=== PATIENT | male | born 1930 | race Caucasian/White ===

== ENCOUNTER 2016-08-25 17:15 | Inpatient (IN) | payer MEDICARE, MEDICAID ==
[~2016-08-25] VITALS: Ht 160 cm; Wt 57.6 kg
[~2016-08-25 17:15] MED LIST: CARV12.52 PO; CLON0.5T4 PO; DICL75TA5 PO; DOCU-170 PO; HYDR-548 PO; LINA145C PO; OLME40TA3 PO; PANT40SU PO; SODI650T PO; TRAM50TA2 PO
--- NOTE | 2016-08-25 17:22 | NUR ---
PT BIB RA FROM HOME FOR INCREASING CONFUSION OVER 2 WEEKS. DENIES ANY PAIN. PT HAS PORTACATH . PLACED ON MONITOR. VSS.
[2016-08-25] MEDS ORDERED: LEVO500T90 PO (17:59)
[2016-08-25] MEDS ORDERED: CLON0.1T PO (17:59)
[2016-08-25] MEDS ORDERED: FAMO20TA8 PO (17:59)
[2016-08-25] MEDS ORDERED: IV NS 0.9% 1,000 ML BAG IV ONE ×2 (18:00→20:00)
[2016-08-25] MEDS ORDERED: IV NS 0.9% 1,000 ML ONE ×2 (18:04→19:50)
[2016-08-25] MEDS ORDERED: IV SET PRIMARY 1 EA INFUS.SET MC ONE ×2 (18:04→19:50)
--- NOTE | 2016-08-25 18:06 | NUR ---
RT CHEST PORTACATH ACCESS. BLOOD SAMPLE COLLECTED
--- NOTE | 2016-08-25 18:13 | NUR ---
URINE SAMPLE COLLECTED FROM UROSTOMY BAG
[2016-08-25 18:20] LABS: BASOPHILS # (AUTO) 0.1 /CMM (0.0-0.2); BASOPHILS % (AUTO) 0.7 % (0.0-2.0); EOSINOPHILS % (AUTO) 0.2 % (0.0-6.0); HEMATOCRIT 27 % (39-51); HEMOGLOBIN 8.7 g/dL (13.5-17.5); LYMPHOCYTES # (AUTO) 1.6 /CMM (0.8-4.8); LYMPHOCYTES % (AUTO) 9.4 % (20.0-44.0); MEAN CORPUSCULAR HEMOGLOBIN 27 PG (26.0-33.0); MEAN CORPUSCULAR HGB CONC 32 g/dl (31.0-36.0); MEAN CORPUSCULAR VOLUME 84 fL (80-96); MONOCYTES # (AUTO) 0.5 /CMM (0.1-1.30); MONOCYTES % (AUTO) 2.7 % (2.0-12.0); NEUTROPHILS # (AUTO) 14.5 /CMM (1.8-8.9); PLATELET COUNT (AUTO) 278 /CMM (150-450); RDW COEFFICIENT OF VARIATION 17.4 (11.5-15.0); WHITE BLOOD COUNT (AUTO) 16.7 K/uL (4.3-11.0)
[2016-08-25 18:32] LABS: CALCIUM, SERUM 8.4 mg/dL (8.5-10.1); CREATININE 0.8 mg/dL (0.6-1.3); POTASSIUM 3.4 mmol/L (3.5-5.1)
[2016-08-25 18:38] LABS: ALBUMIN 1.8 g/dL (3.4-5.0); BILIRUBIN,DIRECT 0.1 mg/dL (0.0-0.2); BILIRUBIN,TOTAL 0.4 mg/dL (0.2-1.0); INR 1.12 (0.87-1.13); PROTHROMBIN TIME 12.1 SECS (9.5-12.7); TOTAL PROTEIN, SERUM 5.6 g/dL (6.4-8.2)
--- NOTE | 2016-08-25 19:21 | NUR ---
GAVE REPORT TO MATIAS ORTA
[2016-08-25 19:27] LABS: APPEARANCE,URINE CLEAR (CLEAR); BILIRUBIN,URINE NEGATIVE (NEGATIVE); BLOOD, URINE 1+ Ery/uL (NEGATIVE); COLOR,URINE YELLOW (YELLOW); KETONES,URINE NEGATIVE (NEGATIVE); LEUKOCYTE ESTERASE ,URINE 2+ (NEGATIVE); NITRITE, URINE NEGATIVE (NEGATIVE); PROTEIN,URINE TRACE mg/dl (NEGATIVE); UGLUCOSE NEGATIVE (NEGATIVE); UROBILINOGEN,URINE 0.2 EU/dL (0.2)
[2016-08-25 19:35] LABS: ADD URINE CULTURE YES; BACTERIA,URINE Few /HPF (None Seen); SQUAMOUS EPITHELIAL CELL,UR Rare /HPF (None Seen)
[2016-08-25] MEDS ORDERED: CEFTRIAXONE 1GM BAG (ER ONLY) 50 ML IV ONE (19:50)
[2016-08-25] MEDS ORDERED: IV SET PRIMARY PUMP SET 1 EA INFUS.SET MC ONE (19:50)
[2016-08-25] MEDS ORDERED: CEFTRIAXONE 1GM BAG (ER ONLY) 1 GM/50 ML PIGGYBACK IV ONE (20:00)
--- NOTE | 2016-08-25 20:12 | NUR ---
PT TO RADIOLOGY FOR HEAD CT SCAN VIA [facility].
--- NOTE | 2016-08-25 20:39 | NUR ---
BLOOD CULTURES AND LACTIC ACID DRAWN BY LAB.
--- NOTE | 2016-08-25 20:46 | NUR ---
REPORT GIVEN TO [place]. PT AWAITING TRANSFER TO FLOOR.
[2016-08-25 21:00] VITALS: BP 147/71
--- NOTE | 2016-08-25 21:00 | NUR ---
MS RN NOTE: RECEIVED PATIENT FROM ER, NO ACUTE DISTRESS NOTED, FAMILY AT BEDSIDE. BREATHING EVEN AND UNLABORED, NO SOB NOTED. PORT-A-CATH TO RIGHT CHEST WALL IN PLACE. ORIENTED FAMILY TO ROOM AND USE OF CALL LIGHT. BED LOCKED AND IN LOWEST POSITION, CALL LIGHT IN REACH. WILL CONTINUE TO MONITOR.
[2016-08-25] MEDS ORDERED: ZOLPIDEM TARTRATE 5 MG TABLET PO PRN (21:30)
[2016-08-25] MEDS ORDERED: ACETAMINOPHEN 325 MG TABLET PO PRN (21:30)
[2016-08-25] MEDS ORDERED: MAGNESIUM HYDROXIDE 30 ML UDC PO PRN (21:30)
[2016-08-25] MEDS ORDERED: POTASSIUM CHLORIDE 20 MEQ TAB.PRT.SR PO ONE ×2 (21:30→22:27)
[2016-08-25] MEDS ORDERED: ONDANSETRON HCL/PF 4 MG/2 ML VIAL IVP PRN (21:30)
[2016-08-25] MEDS ORDERED: ENOXAPARIN SODIUM 40 MG/0.4 ML DISP.SYRIN SQ SCH ×2 (21:30)
[2016-08-25] MEDS: IV NS 0.9% 1,000 ML IV PRN (22:39)
[2016-08-25] MEDS ORDERED: CLONIDINE HCL 0.1 MG TABLET PO PRN (23:00)
[2016-08-25] MEDS ORDERED: TRAMADOL HCL 50 MG TABLET PO PRN (23:00)
[2016-08-25] MEDS ORDERED: ZOLPIDEM TARTRATE 5 MG TABLET ONE (23:18)
--- NOTE | 2016-08-26 04:00 | NUR ---
MS RN NOTE: PATIENT CONFUSED AND TRYING TO GET OUT OF BED. TRIED TO REORIENT PATIENT, BUT CONTINUE TO TRY TO GET UP AND OUT OF BED. CONTACTED ON-CALL , ALEXANDER MONTES. RECEIVED ORDER FOR SITTER. OK TO HAVE A SITTER. INFORMED NURSING FUEL CELL REPAIRER, NO SITTER AVAILABLE FOR THE REST OF THE NIGHT, BUT WILL HAVE A SITTER FOR THE DAY SHIFT. NURSE NEAR BY PATIENT ROOM TO MONITOR PATIENT. WILL CONTINUE TO MONITOR.
--- NOTE | 2016-08-26 06:00 | NUR ---
MS RN NOTE: PATIENT RESTING IN BED, NO ACUTE DISTRESS NOTED. BREATHING EVEN AND UNLABORED, NO SOB NOTED. PORT-A-CATH TO RIGHT CHEST WALL IN PLACE. BED LOCKED AND IN LOWEST POSITION, CALL LIGHT IN REACH. WILL ENDORSE TO DAY NURSE TO CONTINUE WITH PLAN OF CARE.
[2016-08-26 06:57] LABS: EOSINOPHILS % (AUTO) 0.3 % (0.0-6.0); HEMATOCRIT 30 % (39-51); HEMOGLOBIN 9.6 g/dL (13.5-17.5); LYMPHOCYTES # (AUTO) 1.3 /CMM (0.8-4.8); LYMPHOCYTES % (AUTO) 7.4 % (20.0-44.0); MEAN CORPUSCULAR HEMOGLOBIN 28 PG (26.0-33.0); MEAN CORPUSCULAR HGB CONC 33 g/dl (31.0-36.0); MEAN CORPUSCULAR VOLUME 84 fL (80-96); MONOCYTES # (AUTO) 0.7 /CMM (0.1-1.30); NEUTROPHILS % (AUTO) 88.3 % (43.0-81.0); PLATELET COUNT (AUTO) 356 /CMM (150-450); RDW COEFFICIENT OF VARIATION 18.1 (11.5-15.0); RED BLOOD CELL COUNT(AUTO) 3.51 MIL/uL (4.5-6.0); WHITE BLOOD COUNT (AUTO) 18.1 K/uL (4.3-11.0)
[2016-08-26 07:30] LABS: CALCIUM, SERUM 8.2 mg/dL (8.5-10.1); CREATININE 0.9 mg/dL (0.6-1.3); MAGNESIUM 1.6 mg/dL (1.8-2.4); PHOSPHORUS 2.4 mg/dL (2.5-4.9); POTASSIUM 3.3 mmol/L (3.5-5.1)
[2016-08-26 08:00] VITALS: BP 146/76
[2016-08-26] MEDS ORDERED: CARVEDILOL 12.5 MG TABLET PO SCH (09:00)
[2016-08-26] MEDS: FAMOTIDINE (20 MG) 20 MG TABLET PO SCH (09:05)
[2016-08-26] MEDS: PANTOPRAZOLE 40 MG TABLET.DR PO SCH (09:05)
--- NOTE | 2016-08-26 09:29 | NUR ---
WOUND CARE CONSULT: PT PRESENTS WITH LEFT LEG EDEMA WHICH IS PROFOUND WITH 4+ PITTING EDEMA TO LEFT FOOT. BLANCHING REDNESS NOTED TO SACRAL/BUTTOCK AREAS. PT TO BE TURNED AND REPOSITIONED EVERY 2 HRS PT CONDITION PERMITS, HEELS FLOATED. PT NOTED TO BE INCONTINENT OF STOOL AT TIMES. ALL SKIN PROTECTION RECOMMENDATIONS DISCUSSED WITH NURSING STAFF. PT ON COMFORT GEL MATTRESS. IN AGREEMENT WITH PLAN OF CARE. Addendum: 08/26/16 at 0935 by KAY SKELTON WNDNU Amended: Links added.
--- NOTE | 2016-08-26 09:40 | NUR ---
RN NOTE: RECEIVED PATIENT RESTING IN BED, NO ACUTE DISTRESS NOTED, DENIES ANY PAIN OR DISCOMFORT. BREATHING EVEN AND UNLABORED, NO SOB NOTED. PORT-A-CATH TO RIGHT CHEST WALL IN PLACE. ORIENTED TO SELF, SITTER AT BEDSIDE. BED LOCKED AND IN LOWEST POSITION, CALL LIGHT IN REACH. WILL CONTINUE TO MONITOR. Addendum: 08/26/16 at 2009 by JAMILA LAMAR RN RN NOTES CORRECTION OF TIME ENTRY [id number]
[2016-08-26] MEDS: CARVEDILOL 12.5 MG TABLET PO SCH (11:53)
[2016-08-26] MEDS ORDERED: LOPERAMIDE HCL (2 MG CAP) 2 MG CAPSULE PO PRN (12:00)
[2016-08-26] MEDS ORDERED: POTASSIUM CHLORIDE 20 MEQ TAB.PRT.SR PO SCH (12:00)
[2016-08-26] MEDS ORDERED: MAGNESIUM OXIDE 400 MG TABLET PO ONE (12:30)
[2016-08-26 16:00] VITALS: BP 133/57
[2016-08-26] MEDS ORDERED: Magnesium 1GM/D5W 100ML PREMIX 100 ML IV SCH (16:00)
[2016-08-26] MEDS ORDERED: K PHOS NEUTRAL 250 MG TABLET PO ONE (16:30)
--- NOTE | 2016-08-26 19:45 | NUR ---
MS RN NOTE: PATIENT RESTING IN BED, NO ACUTE DISTRESS NOTED. BREATHING EVEN AND UNLABORED, NO SOB NOTED. PORT-A-CATH TO RIGHT CHEST WALL IN PLACE, INFUSING NS AT 75 ML/HR. SITTER AT BEDSIDE. BED LOCKED AND IN LOWEST POSITION, CALL LIGHT IN REACH. WILL CONTINUE TO MONITOR.
--- NOTE | 2016-08-26 19:45 | NUR ---
MS RN NOTE: PATIENT RESTING IN BED, NO ACUTE DISTRESS NOTED, DENIES ANY PAIN OR DISCOMFORT. BREATHING EVEN AND UNLABORED, NO SOB NOTED. PORT-A-CATH TO RIGHT CHEST WALL IN PLACE. ORIENTED TO SELF, SITTER AT BEDSIDE. BED LOCKED AND IN LOWEST POSITION, CALL LIGHT IN REACH. ENDORSED TO NEXT SHIFT FOR CONTINUITY OF CARE
[2016-08-26 20:00] VITALS: BP 117/54
[2016-08-26] MEDS: CEFTRIAXONE 1 G in IV D5W 50 ML IV SCH (21:08)
[2016-08-26] MEDS: IV NS 0.9% 1,000 ML IV PRN (21:08)
[2016-08-26] MEDS ORDERED: SECONDARY IV SET 1 EA INFUS.SET MC ONE (21:09)
--- NOTE | 2016-08-27 02:30 | NUR ---
MS RN NOTE: PATIENT SLEEPING IN BED, NO ACUTE DISTRESS NOTED. BREATHING EVEN AND UNLABORED, NO SOB NOTED. SITTER AT BEDSIDE. BED LOCKED AND IN LOWEST POSITION, CALL LIGHT IN REACH. WILL CONTINUE TO MONITOR.
--- NOTE | 2016-08-27 06:25 | NUR ---
MS RN NOTE: PATIENT RESTING IN BED, NO ACUTE DISTRESS NOTED. BREATHING EVEN AND UNLABORED, NO SOB NOTED. PORT-A-CATH TO RIGHT CHEST WALL IN PLACE, INFUSING NS AT 75 ML/HR. SITTER AT BEDSIDE. BED LOCKED AND IN LOWEST POSITION, CALL LIGHT IN REACH. WILL ENDORSE TO DAY NURSE TO CONTINUE WITH PLAN OF CARE.
--- NOTE | 2016-08-27 07:30 | NUR ---
MS RN NOTE: RECEIVED PATIENT RESTING IN BED, NO ACUTE DISTRESS NOTED, DENIES ANY PAIN OR DISCOMFORT. BREATHING EVEN AND UNLABORED, NO SOB NOTED. PORT-A-CATH TO RIGHT CHEST WALL IN PLACE NO REDNESS OR INFILTRATION NOTED. ORIENTED TO SELF, SITTER AT BEDSIDE. BED LOCKED AND IN LOWEST POSITION, CALL LIGHT IN REACH. WILL CONTINUE TO MONITOR.
[2016-08-27 07:32] LABS: CALCIUM, SERUM 7.6 mg/dL (8.5-10.1); CREATININE 0.8 mg/dL (0.6-1.3); MAGNESIUM 1.5 mg/dL (1.8-2.4); PHOSPHORUS 2.4 mg/dL (2.5-4.9); POTASSIUM 3.8 mmol/L (3.5-5.1)
[2016-08-27 08:00] VITALS: BP 132/67
[2016-08-27] MEDS: FAMOTIDINE (20 MG) 20 MG TABLET PO SCH (08:17)
[2016-08-27] MEDS: PANTOPRAZOLE 40 MG TABLET.DR PO SCH (08:17)
[2016-08-27] MEDS: CARVEDILOL 12.5 MG TABLET PO SCH (08:19)
[2016-08-27] MEDS ORDERED: MAGNESIUM OXIDE 400 MG TABLET PO ONE (10:30)
[2016-08-27] MEDS: ENOXAPARIN SODIUM 40 MG/0.4 ML DISP.SYRIN SQ SCH (11:00)
[2016-08-27] MEDS: IV NS 0.9% 1,000 ML IV PRN (12:47)
[2016-08-27] MEDS ORDERED: VANCOMYCIN 1 GM in IV D5W 250 ML IV SCH (14:00)
[2016-08-27] MEDS ORDERED: FEE PK DOSING 1 MIN EA MC ONE (14:11)
--- NOTE | 2016-08-27 15:00 | NUR ---
RN NOTES/MRSA PATIENT REFUSED MRSA SWAB MULTIPLE TIMES, NURSING EDUCATION REINFORCED, PT MOVING RN HAND AWAY WILL CONTINUE TO MONITOR
[2016-08-27] MEDS: VANCOMYCIN 0.75 GM in IV D5W 250 ML IV SCH (15:27)
[2016-08-27 16:00] VITALS: BP 113/57
[2016-08-27] MEDS ORDERED: K PHOS NEUTRAL 250 MG TABLET PO ONE (16:00)
[2016-08-27] MEDS ORDERED: SECONDARY IV SET 1 EA INFUS.SET MC ONE (16:30)
[2016-08-27] MEDS: Magnesium 1GM/D5W 100ML PREMIX 100 ML IV SCH ×3 (16:53→19:47)
--- NOTE | 2016-08-27 19:15 | NUR ---
MS/RN NOTES RECEIVED PT. LYING IN BED. AWAKE, ALERT AND ORIENTED TO SELF. BREATHING EVEN AND UNLABORED ON ROOM AIR. NO SOB, RESPIRATORY DISTRESS OR S/S OF PAIN NOTED AT THIS TIME. PT. WITH RIGHT CHEST WALL PORTACATH PRESENT, PATENT AND INTACT ADMINISTERING TO PT. NS @ 75 ML/HR. PT. TOLERATING WELL. PT. WITH UROSTOMY PRESENT AND INTACT DRAINING SLIGHTLY CLOUDY YELLOW URINE. BED IN LOWEST POSITION, CALL LIGHT WITHIN REACH. WILL CONTINUE TO MONITOR.
--- NOTE | 2016-08-27 19:40 | NUR ---
MS RN NOTE: PATIENT RESTING IN BED, NO ACUTE DISTRESS NOTED, DENIES ANY PAIN OR DISCOMFORT. BREATHING EVEN AND UNLABORED, NO SOB NOTED. PORT-A-CATH TO RIGHT CHEST WALL IN PLACE. ORIENTED TO SELF, PATIENT ASLEEEP. BED LOCKED AND IN LOWEST POSITION, CALL LIGHT IN REACH. ENDORSED TO NEXT SHIFT FOR CONTINUITY OF CARE Addendum: 08/27/16 at 1958 by JAMILA LAMAR RN RN NOTES FAMILY NOT WANTING TO HAVE MITTENS PLACED, PT TO BE REORIENTED NEEDED, AND FREQUENT VISUAL CHECKS FOR SAFETY
[2016-08-27 20:00] VITALS: BP 104/42
[2016-08-27] MEDS: CEFTRIAXONE 1 G in IV D5W 50 ML IV SCH (21:48)
[2016-08-28] MEDS: VANCOMYCIN 0.75 GM in IV D5W 250 ML IV SCH ×2 (03:31→15:32)
[2016-08-28 06:43] LABS: BASOPHILS % (AUTO) 0.1 % (0.0-2.0); EOSINOPHILS # (AUTO) 0.1 /CMM (0.0-0.7); EOSINOPHILS % (AUTO) 0.7 % (0.0-6.0); HEMATOCRIT 24 % (39-51); HEMOGLOBIN 7.7 g/dL (13.5-17.5); LYMPHOCYTES # (AUTO) 1.8 /CMM (0.8-4.8); LYMPHOCYTES % (AUTO) 9.6 % (20.0-44.0); MEAN CORPUSCULAR HEMOGLOBIN 27 PG (26.0-33.0); MEAN CORPUSCULAR HGB CONC 33 g/dl (31.0-36.0); MEAN CORPUSCULAR VOLUME 84 fL (80-96); MONOCYTES # (AUTO) 0.8 /CMM (0.1-1.30); MONOCYTES % (AUTO) 4.5 % (2.0-12.0); NEUTROPHILS # (AUTO) 15.6 /CMM (1.8-8.9); NEUTROPHILS % (AUTO) 85.1 % (43.0-81.0); PLATELET COUNT (AUTO) 241 /CMM (150-450); RED BLOOD CELL COUNT(AUTO) 2.81 MIL/uL (4.5-6.0); WHITE BLOOD COUNT (AUTO) 18.3 K/uL (4.3-11.0)
--- NOTE | 2016-08-28 06:50 | NUR ---
MS/RN NOTES PT. LYING IN BED RESTING. BREATHING EVEN AND UNLABORED ON ROOM AIR. NO SOB, RESPIRATORY DISTRESS OR S/S OF PAIN NOTED THROUGHOUT SHIFT. PT. WITH RIGHT CHEST WALL PORTACATH PRESENT, PATENT AND INTACT ADMINISTERING TO PT. NS @ 75 ML/HR. PT. WITH UROSTOMY PRESENT AND INTACT. EMPTIED 400 ML SLIGHTLY CLOUDY YELLOW URINE. ALL PT. NEEDS MET.PT. OFFLOADED. TURNED AND REPOSITIONED Q2H AND NEEDED. BED IN LOWEST POSITION, CALL LIGHT WITHIN REACH. WILL ENDORSE TO DAYSHIFT NURSE FOR CONTINUITY OF CARE.
[2016-08-28 07:09] LABS: CALCIUM, SERUM 7.4 mg/dL (8.5-10.1); CREATININE 0.8 mg/dL (0.6-1.3); MAGNESIUM 2.1 mg/dL (1.8-2.4); PHOSPHORUS 2.5 mg/dL (2.5-4.9); POTASSIUM 3.4 mmol/L (3.5-5.1)
--- NOTE | 2016-08-28 07:30 | NUR ---
MS RN AM NOTE: RECEIVED PATIENT RESTING IN BED, ORIENTED TO SELF ONLY, SITTER AT BEDSIDE. ON RA, NO ACUTE DISTRESS NOTED, NO SIGNS OF PAIN OR DISCOMFORT. PORT-A-CATH TO RIGHT CHEST WALL IN PLACE WITH NS AT 75 ML/HR INFUSING WELL, SITE CLEAR, SOFT DIET, SEE NURSING FLOWSHEET FOR SKIN ISSUES, BED LOCKED AND IN LOWEST POSITION, CALL LIGHT IN REACH. WILL CONTINUE TO MONITOR.
[2016-08-28 07:43] LABS: THYROID STIMULATING HORMONE 0.727 uIU/mL (0.358-3.74)
[2016-08-28 08:00] VITALS: BP 113/51
[2016-08-28] MEDS: CARVEDILOL 12.5 MG TABLET PO SCH (09:00)
[2016-08-28] MEDS: FAMOTIDINE (20 MG) 20 MG TABLET PO SCH (09:09)
[2016-08-28] MEDS: IV NS 0.9% 1,000 ML IV PRN (09:09)
[2016-08-28] MEDS: PANTOPRAZOLE 40 MG TABLET.DR PO SCH (09:09)
[2016-08-28] MEDS: ENOXAPARIN SODIUM 40 MG/0.4 ML DISP.SYRIN SQ SCH (09:11)
[2016-08-28] MEDS: ACETYLCYSTEINE 10% 3,000 MG/30 ML VIAL PO SCH ×2 (09:24→18:03)
--- NOTE | 2016-08-28 09:30 | NUR ---
RN NOTES ADMINISTERED DUE MEDS.
[2016-08-28] MEDS ORDERED: POTASSIUM CHLORIDE 20 MEQ TAB.PRT.SR PO SCH (10:00)
--- NOTE | 2016-08-28 10:09 | NUR ---
SPOKE WITH RN THIS MORNING. PATIENT NOT NPO, ATE BREAKFAST. CT WILL BE DONE AFTER 12:30. AWAITING CONSENT. RN WILL CALL AFTER CONSENT HAS BEEN SIGNED.
[2016-08-28] MEDS ORDERED: IV NS 0.9% 250 ML IV ONE (12:30)
[2016-08-28] MEDS ORDERED: CT SWABBABLE VALVE TRANS SET 1 EA INFUS.SET MC ONE (12:30)
[2016-08-28] MEDS ORDERED: IOHEXOL-300 100 ML VIAL IV ONE (12:31)
[2016-08-28] MEDS: LORAZEPAM INJ 2 MG/ML VIAL IV PRN (12:47)
--- NOTE | 2016-08-28 13:00 | NUR ---
RN NOTES PATIENT PICKED UP FOR CT SCAN.
--- NOTE | 2016-08-28 13:42 | NUR ---
RN NOTES PATIENT BACK FROM CT SCAN.
--- NOTE | 2016-08-28 15:32 | NUR ---
RN NOTES VANCO IV STARTED.
[2016-08-28 16:00] VITALS: BP 133/60
[2016-08-28 18:00] VITALS: BP 133/60
[2016-08-28 19:00] VITALS: BP 117/88
[2016-08-28] MEDS: CYANOCOBALAMIN 1,000 MCG/ML VIAL IM SCH (19:50)
[2016-08-28] MEDS: CEFTRIAXONE 1 G in IV D5W 50 ML IV SCH (20:19)
--- NOTE | 2016-08-28 20:25 | NUR ---
MS RN CLOSING NOTE: PATIENT IN BED RESTING COMFORTABLY, ORIENTED TO SELF ONLY, ON RA, NO ACUTE DISTRESS NOTED, NO SIGNS OF PAIN OR DISCOMFORT. PORT-A-CATH TO RIGHT CHEST WALL IN PLACE WITH NS AT 75 ML/HR INFUSING WELL, SITE CLEAR, SOFT DIET, PM CARE DONE, SEEN BY DR. WHITAKER AND DR. PAVON EARLIER. PT'S DAUGHTER - MAREK VISITED EARLIER. BED LOCKED AND IN LOWEST POSITION, SAFETY MEASURES IN PLACE. PM CARE DONE. CALL LIGHT IN REACH. ALL NEEDS MET. NO OTHER SIGNIFICANT CHANGE IN CONDITION. ENDORSED TO NEXT SHIFT FOR KEITH.
[2016-08-29] MEDS: VANCOMYCIN 0.75 GM in IV D5W 250 ML IV SCH ×2 (03:35→22:05)
[2016-08-29 06:39] LABS: BASOPHILS % (AUTO) 0.2 % (0.0-2.0); EOSINOPHILS # (AUTO) 0.1 /CMM (0.0-0.7); EOSINOPHILS % (AUTO) 0.6 % (0.0-6.0); HEMATOCRIT 26 % (39-51); HEMOGLOBIN 8.3 g/dL (13.5-17.5); LYMPHOCYTES # (AUTO) 1.9 /CMM (0.8-4.8); LYMPHOCYTES % (AUTO) 12.5 % (20.0-44.0); MEAN CORPUSCULAR HEMOGLOBIN 27 PG (26.0-33.0); MEAN CORPUSCULAR HGB CONC 33 g/dl (31.0-36.0); MEAN CORPUSCULAR VOLUME 84 fL (80-96); MONOCYTES # (AUTO) 0.6 /CMM (0.1-1.30); MONOCYTES % (AUTO) 4.2 % (2.0-12.0); NEUTROPHILS # (AUTO) 12.4 /CMM (1.8-8.9); NEUTROPHILS % (AUTO) 82.5 % (43.0-81.0); PLATELET COUNT (AUTO) 256 /CMM (150-450); RDW COEFFICIENT OF VARIATION 17.9 (11.5-15.0); RED BLOOD CELL COUNT(AUTO) 3.04 MIL/uL (4.5-6.0)
[2016-08-29 06:48] LABS: INR 1.14 (0.87-1.13); PROTHROMBIN TIME 12.3 SECS (9.5-12.7)
--- NOTE | 2016-08-29 07:00 | NUR ---
MS RN NOTES AWAKE & RESPONSIVE. NOT IN ANY DISTRESS. NO SOB NOTED. DENIES ANY PAIN OR DISCOMFORT AT THIS TIME. WITH IVF INFUSING WELL. AM CARE DONE. MONITORED ACCORDINGLY. CALL LIGHT WITHIN REACH. BED IN LOWEST POSITION. SR UP X 3 WITH BED ALARM ON FOR SAFETY. WILL ENDORSE TO NEXT SHIFT.
[2016-08-29 07:04] LABS: CALCIUM, SERUM 7.4 mg/dL (8.5-10.1); CREATININE 0.7 mg/dL (0.6-1.3); POTASSIUM 4.3 mmol/L (3.5-5.1)
--- NOTE | 2016-08-29 07:20 | NUR ---
MS RN INITIAL NOTES REPORT RECEIVED AT THE BEDSIDE. PATIENT IS SLEEPING. NO SOB OR DISTRESS NOTED AT THIS TIME. PATIENT DOSE NOT APPEAR TO BE IN PAIN, NO FACIAL GRIMACE NOTED. BED IN A LOW POSITION, CALL LIGHT WITHIN REACH. WILL CONTINUE TO MONITOR.
[2016-08-29 08:00] VITALS: BP 123/69
[2016-08-29] MEDS: CARVEDILOL 12.5 MG TABLET PO SCH (08:07)
[2016-08-29] MEDS: FAMOTIDINE (20 MG) 20 MG TABLET PO SCH (08:07)
[2016-08-29] MEDS: PANTOPRAZOLE 40 MG TABLET.DR PO SCH (08:07)
[2016-08-29] MEDS: CYANOCOBALAMIN 1,000 MCG/ML VIAL IM SCH ×2 (08:07→09:00)
[2016-08-29] MEDS: ACETYLCYSTEINE 10% 3,000 MG/30 ML VIAL PO SCH ×2 (08:08→17:36)
[2016-08-29] MEDS: ENOXAPARIN SODIUM 40 MG/0.4 ML DISP.SYRIN SQ SCH (08:08)
--- NOTE | 2016-08-29 08:30 | NUR ---
MS RN NOTES PATIENT IS REFUSING IV FLUIDS AT THIS TIME. WITH THE HELP OF MATIAS BANG A PURSE FRAMER, EXPLAINED TO THE PATIENT THE IMPORTANCE OF IV FLUIDS. PATIENT STATES "I DON'T WANT IT,NO." WILL INFORM MD AND ATTEMPT AGAIN LATER.
--- NOTE | 2016-08-29 09:22 | NUR ---
MS RN NOTES DID NOT ADMINISTER VITB INJECTION OR LOVENOX PATIENT REFUSES AT THIS TIME. HAD TO WASTE VIT B INJECTION. WILL CONTINUE TO MONITOR. PATIENT.
--- NOTE | 2016-08-29 11:21 | NUR ---
MS RN NOTES PATIENT IS REFUSING MRSA SWAB; PATIENT PULLS AWAY AND PLACES HAND OVER NOSE WHEN ATTEMPT IS MADE. UNABLE TO EXPLAIN THE NEED FOR MRSA SWAB THERE IS NO ONE TO TRANSLATE VINCENTIAN AND PATIENT IS CONFUSED.
[2016-08-29 16:00] VITALS: BP 120/72
[2016-08-29 16:03] LABS: *SPE A/G RATIO 0.7 (0.7-1.7); *SPE ALBUMIN 1.7 g/dL (2.9-4.4); *SPE ALPHA-1-GLOBULIN 0.3 g/dL (0.0-0.4); *SPE ALPHA-2-GLOBULIN 0.6 g/dL (0.4-1.0); *SPE BETA GLOBULIN 0.5 g/dL (0.7-1.3); *SPE GLOBULIN, TOTAL 2.6 g/dL (2.2-3.9); *SPE M-SPIKE Not Observed g/dL (Not Observed); *SPE PROTEIN TOTAL 4.3 g/dL (6.0-8.5); *SPEGAMMA GLOBULIN 1.1 g/dL (0.4-1.8)
--- NOTE | 2016-08-29 17:39 | NUR ---
MS RN NOTES PATIENT IS STILL REFUSING IV FLUIDS. WITH THE HELP OF MATIAS BANG TRANSLATING. PATIENT STATES, "NO I DON'T WANT IT, I DON'T NEED IT."
[2016-08-29 19:00] VITALS: BP 116/62
--- NOTE | 2016-08-29 19:22 | NUR ---
MS RN CLOSING NOTES NO SIGNIFICANT CHANGES IN PATIENT CONDITION THROUGHOUT THE SHIFT. NO SOB OR DISTRESS AT THIS TIME. PATIENT DOES NOT APPEAR TO BE IN PAIN, NO FACIAL GRIMACE NOTED. PATIENT STILL REFUSING IV FLUIDS AT THIS TIME. BED IN A LOW POSITION, CALL LIGHT WITHIN PATIENT REACH. WILL ENDORSE FOR KEITH.
--- NOTE | 2016-08-29 19:45 | NUR ---
MS RN NOTE: PATIENT RESTING IN BED, NO ACUTE DISTRESS NOTED. BREATHING EVEN AND UNLABORED, NO SOB NOTE. UROSTOMY BAG TO RIGHT ABDOMEN, EMPTY AT THIS TIME. BED LOCKED AND IN LOWEST POSITION, CALL LIGHT IN REACH. WILL CONTINUE TO MONITOR.
[2016-08-29] MEDS: CEFTRIAXONE 1 G in IV D5W 50 ML IV SCH (20:43)
[2016-08-29] MEDS: LORAZEPAM INJ 2 MG/ML VIAL IV PRN (22:34)
--- NOTE | 2016-08-29 22:45 | NUR ---
MS RN NOTE: PATIENT RESTLESS TRYING TO GET OUT OF BED AND TAKING OFF GOWN. ATIVAN 0.25MG IV GIVEN PER MD ORDER. WILL CONTINUE TO MONITOR.
--- NOTE | 2016-08-30 06:30 | NUR ---
MS RN NOTE: PATIENT RESTING IN BED, NO ACUTE DISTRESS NOTED. BREATHING EVEN AND UNLABORED, NO SOB NOTE. UROSTOMY BAG TO RIGHT ABDOMEN. ANAYA NEEDLE ACCESSED TO PORT-A-CATH TO RIGHT CHEST WALL WITH GOOD BLOOD RETURN. PATIENT NPO FOR PROCEDURE IN MORNING, CONSENT AND CHECKLIST IN CHART. BED LOCKED AND IN LOWEST POSITION, CALL LIGHT IN REACH. WILL ENDORSE TODAY NURSE TO CONTINUE WITH PLAN OF CARE.
[2016-08-30 07:24] LABS: CALCIUM, SERUM 7.5 mg/dL (8.5-10.1); CREATININE 0.6 mg/dL (0.6-1.3); POTASSIUM 3.4 mmol/L (3.5-5.1)
[2016-08-30 07:26] LABS: INR 1.11 (0.87-1.13); PROTHROMBIN TIME 11.9 SECS (9.5-12.7)
[2016-08-30] MEDS: PANTOPRAZOLE 40 MG TABLET.DR PO SCH (07:30)
[2016-08-30 08:00] VITALS: BP 132/74
[2016-08-30] MEDS: CYANOCOBALAMIN 1,000 MCG/ML VIAL IM SCH (09:00)
[2016-08-30] MEDS: FAMOTIDINE (20 MG) 20 MG TABLET PO SCH (09:00)
[2016-08-30] MEDS: CARVEDILOL 12.5 MG TABLET PO SCH (09:00)
[2016-08-30] MEDS: ACETYLCYSTEINE 10% 3,000 MG/30 ML VIAL PO SCH ×2 (09:00→17:00)
[2016-08-30] MEDS: LORAZEPAM INJ 2 MG/ML VIAL IV PRN (09:48)
[2016-08-30] MEDS ORDERED: FENTANYL PF 250MCG/5ML AMPUL IV ONE (11:30)
[2016-08-30] MEDS ORDERED: MIDAZOLAM HCL 5MG/ML VIAL 25 MG/5 ML VIAL IV ONE (11:30)
[2016-08-30] MEDS ORDERED: NALOXONE PREFILLED SYRINGE 2 MG/2 ML SYRINGE IV ONE (11:30)
[2016-08-30] MEDS ORDERED: POTASSIUM CHLORIDE 20 MEQ TAB.PRT.SR PO SCH (13:00)
[2016-08-30] MEDS ORDERED: LIDOCAINE HCL/PF 1% 30 ML SDV ONE (14:16)
--- NOTE | 2016-08-30 14:30 | NUR ---
M/S RN - PT TAKEN FOR CT GUIDED DRAINAGE OF ABSCESS. CONSENTS SIGNED. IV'S PATENT.
[2016-08-30 16:00] VITALS: BP 114/81
[2016-08-30] MEDS: VANCOMYCIN 0.75 GM in IV D5W 250 ML IV SCH (16:40)
--- NOTE | 2016-08-30 19:21 | NUR ---
M/S RN - NOTE HELD PO MEDICATIONS AT THIS TIME. PT IS ASLEEP, LETHARGIC. VITALS STABLE. ASPIRATION PRECAUTION NOTED.
--- NOTE | 2016-08-30 19:30 | NUR ---
MS RN NOTES RECEIVED ON BED SOUND ASLEEP,AROUSABLE TO VERBAL STIMULI,BREATHING NON LABORED,O2 IN USED AT 2L/NC TO KEEP O2 SAT ABOVE 90%.NS 75ML/HR RATE IN PROGRESS VIA IV PUMP THRU JOSTIN CATH.WITH LEFT SIDE UROSTOMY DRAINING SEROUS OUTPUT.REPOSITION TO COMFORT,CALL LIGHT IN REACH.WILL CONTINUE TO MONITOR STATUS.
[2016-08-30 20:00] VITALS: BP 111/62
[2016-08-30] MEDS: PIPERACILLIN /TAZOBACTAM 3.375 G in IV D5W 50 ML IV SCH (20:25)
--- NOTE | 2016-08-30 20:30 | NUR ---
MS RN NOTES DUE ZOSYN 3.375GM IVPB HUNG
--- NOTE | 2016-08-31 | NUR ---
MS RN NOTES SOUND ASLEEP,SNOORING.WAKES WHEN REPOSITION.UROSTOMY BAG EMPTIED 200 ML CLEAR URINE OUTPUT
--- NOTE | 2016-08-31 01:00 | NUR ---
MS RN NOTES DUE KODAK 3.375GM JILLIAN ALCALA
[2016-08-31] MEDS: PIPERACILLIN /TAZOBACTAM 3.375 G in IV D5W 50 ML IV SCH ×5 (01:01→23:52)
[2016-08-31] MEDS: PANTOPRAZOLE 40 MG TABLET.DR PO SCH (06:28)
[2016-08-31] MEDS: IV NS 0.9% 1,000 ML IV PRN ×2 (06:41→21:59)
[2016-08-31 06:49] LABS: CALCIUM, SERUM 7.6 mg/dL (8.5-10.1); CREATININE 0.8 mg/dL (0.6-1.3); POTASSIUM 3.4 mmol/L (3.5-5.1)
--- NOTE | 2016-08-31 06:58 | NUR ---
MS RN NOTE PATIENT ASLEEP IN BED. NO DISTRESS NOTED. JOSTIN CATH TO RCW INTACT WITH NO S/S OF INFECTION NOTED. FLUIDS RUNNING ORDERED. UROSTOMY DRAINING 50ML CLEAR URINE. ABDOMINAL DRAIN INTACT, WITH 5ML SANGUINOUS DRAINAGE NOTED. ALL NEEDS MET AND ATTENDED TO. WILL ENDORSE TO DAY SHIFT FOR KEITH.
--- NOTE | 2016-08-31 07:30 | NUR ---
MS RN NOTES RECEIVED PATIENT AWAKE IN BED, BREATHING EVEN AND NON LABORED. DENIES ANY PAIN AT THIS TIME. WITH RCW JOSTIN CATH IN PLACE, NO S/S OF ANY DISTRESS OR DISCOMFORT NOTED, WITH UROSTOMY DRAINING TO YELLOWISH URINE OUTPUT. AND LEFT ABD. DIA DRAIN INTACT. CALL LIGHT WITHIN REACH, BED IN LOW POSITION FOR SAFETY MEASURES, WILL CONTINUE TO MONITOR.
[2016-08-31 08:00] VITALS: BP 125/59
[2016-08-31] MEDS: CARVEDILOL 12.5 MG TABLET PO SCH (08:46)
[2016-08-31] MEDS: CYANOCOBALAMIN 1,000 MCG/ML VIAL IM SCH (08:46)
[2016-08-31] MEDS: FAMOTIDINE (20 MG) 20 MG TABLET PO SCH (08:46)
[2016-08-31] MEDS: ACETYLCYSTEINE 10% 3,000 MG/30 ML VIAL PO SCH ×2 (09:14→17:57)
[2016-08-31] MEDS ORDERED: POTASSIUM CHLORIDE 20 MEQ TAB.PRT.SR PO ONE (10:00)
--- NOTE | 2016-08-31 11:00 | NUR ---
MS RN NOTES POTASSIUM 20 MEQ TABLET GIVEN ORDERED.
[2016-08-31] MEDS: ENOXAPARIN SODIUM 40 MG/0.4 ML DISP.SYRIN SQ SCH (11:10)
--- NOTE | 2016-08-31 15:00 | NUR ---
MS RN NOTES S/B DR. GOKUL YOUNGBLOOD WITH NO NEW ORDERS MADE.
[2016-08-31 16:00] VITALS: BP 110/58
[2016-08-31] MEDS: VANCOMYCIN 0.75 GM in IV D5W 250 ML IV SCH (16:19)
--- NOTE | 2016-08-31 17:00 | NUR ---
MS RN NOTES ALL NEEDS ATTENDED AND ANTICIPATED. NO S/S OF ANY DISTRESS OR DISCOMFORT NOTED
--- NOTE | 2016-08-31 18:00 | NUR ---
MS RN NOTES UROSTOMY BAG CHANGE, OUTPUT 400ML.
--- NOTE | 2016-08-31 19:55 | NUR ---
MS RN INITIAL NOTES: RECEIVED REPORT FROM ADALBERTO SALCEDO. PT ON BED, AWAKE, A/O X1-2 JAPANESE SPEAKING, FAMILY AT BED SIDE, PT REFUSING OXYGEN. PT DENIES ANY P[AIN OR DISCOMFORT AT THIS TIME, APPEARS CALM AND COMFORTABLE. HAS PORTACATH IN PLACED, DRESSING C/D/I. PT HAS UROSTOMY DRAINING INTO YELLOW COLORED URINE. S/P CT GUIDED ABSCESS DRAINAGE WITH ACCORDION DRAIN IN PLACED, WITH DRESSING ON LEFT POSTERIOR BACK C/D/I, NO S/S OF LEAK NOTED. BLE KEPT OFFLOADED. SAFETY PRECAUTION FOR FALL INITIATED CALL LIGHT IN REACH, WILL CONTINUE TO MONITOR
[2016-08-31 20:00] VITALS: BP 115/56
--- NOTE | 2016-08-31 20:30 | NUR ---
MS RN NOTES: PT HAD 1BM, DIAPER CHANGED AT THIS TIME, TURN AND REPOSITION PT
--- NOTE | 2016-08-31 22:00 | NUR ---
MS RN NOTES: S/P IR DRAINAGE 08/30/[address] WHITAKER WITH ACCORDION DRAIN IN PLACED
[2016-08-31] MEDS ORDERED: SECONDARY IV SET 1 EA INFUS.SET MC ONE (23:51)
[2016-09-01] MEDS: PIPERACILLIN /TAZOBACTAM 3.375 G in IV D5W 50 ML IV SCH ×3 (05:23→17:39)
[2016-09-01] MEDS: Z GUARD REMEDY 2 OZ OINT TP PRN (05:56)
[2016-09-01 06:30] LABS: BASOPHILS % (AUTO) 0.2 % (0.0-2.0); EOSINOPHILS # (AUTO) 0.1 /CMM (0.0-0.7); EOSINOPHILS % (AUTO) 0.7 % (0.0-6.0); HEMATOCRIT 26 % (39-51); HEMOGLOBIN 8.3 g/dL (13.5-17.5); LYMPHOCYTES # (AUTO) 2.1 /CMM (0.8-4.8); LYMPHOCYTES % (AUTO) 12.6 % (20.0-44.0); MEAN CORPUSCULAR HEMOGLOBIN 27 PG (26.0-33.0); MEAN CORPUSCULAR HGB CONC 32 g/dl (31.0-36.0); MEAN CORPUSCULAR VOLUME 83 fL (80-96); MONOCYTES # (AUTO) 0.7 /CMM (0.1-1.30); MONOCYTES % (AUTO) 3.9 % (2.0-12.0); NEUTROPHILS % (AUTO) 82.6 % (43.0-81.0); PLATELET COUNT (AUTO) 290 /CMM (150-450); RDW COEFFICIENT OF VARIATION 17.9 (11.5-15.0); RED BLOOD CELL COUNT(AUTO) 3.11 MIL/uL (4.5-6.0); WHITE BLOOD COUNT (AUTO) 16.9 K/uL (4.3-11.0)
[2016-09-01 06:33] LABS: CALCIUM, SERUM 7.6 mg/dL (8.5-10.1); CREATININE 0.9 mg/dL (0.6-1.3); MAGNESIUM 1.7 mg/dL (1.8-2.4); POTASSIUM 4.2 mmol/L (3.5-5.1)
--- NOTE | 2016-09-01 06:50 | NUR ---
MS RN CLOSING NOTES: PT ON BED, AWAKE, REMAINS A/O X2, ON ROOM AIR RESPIRATION EVEN AND UNLABORED, NO SOB NOTED. APPEARS CALM AND COMFORTABLE, JIE IV ACCESS REMAINS PATENT AND FLUSHING WELL, INFUSING WITH NS AT 75ML/HR. PORTACATH REMAINS IN PLACED. UROSTOMY BAG EMPTIED, NO S/ OF LEAK NOTED. LEFT POSTERIOR BACK DRESSING REMAINS C/D/I, NO S/S/ OF LEAK NOTED, ACCORDION DRAIN IN PLACED. BLE KEPT OFFLOADED. WILL INFORM RN REGARDING OBTAINING COPY OF MEDICAL RECORD FROM [facility]. VS REMAINS STABLE, NEEDS ATTENDED. SAFETY PRECAUTIONS FOR FALL REMAINS ENGAGED, CALL LIGHT IN REACH, WILL ENDORSE TO DAY RN FOR KEITH.
--- NOTE | 2016-09-01 07:35 | NUR ---
RN NOTES: RECEIVED PT ON BED, AWAKE, A/O X2 TAJIK SPEAKING FAMILY AT BED SIDE, PT ON 2L VIA NC, DENIES ANY PAIN OR DISCOMFORT AT THIS TIME. RESPIRATIONS EVEN AND UNLABORED, IV ACCESS PATENT AND FLUSHING WELL, INFUSING WITH NS AT 75ML/HR. SAFETY PRECAUTION FOR FALL INITIATED CALL LIGHT IN REACH, WILL CONTINUE TO MONITOR
[2016-09-01 08:00] VITALS: BP 127/56
[2016-09-01] MEDS: ACETYLCYSTEINE 10% 3,000 MG/30 ML VIAL PO SCH ×2 (09:00→16:09)
[2016-09-01] MEDS: CARVEDILOL 12.5 MG TABLET PO SCH (09:02)
[2016-09-01] MEDS: FAMOTIDINE (20 MG) 20 MG TABLET PO SCH (09:02)
[2016-09-01] MEDS: PANTOPRAZOLE 40 MG TABLET.DR PO SCH (09:02)
[2016-09-01] MEDS: CYANOCOBALAMIN 1,000 MCG/ML VIAL IM SCH (09:02)
[2016-09-01] MEDS: ENOXAPARIN SODIUM 40 MG/0.4 ML DISP.SYRIN SQ SCH (09:14)
[2016-09-01] MEDS ORDERED: SECONDARY IV SET 1 EA INFUS.SET MC ONE ×2 (13:33→16:18)
[2016-09-01] MEDS: Magnesium 1GM/D5W 100ML PREMIX 100 ML IV SCH ×2 (13:38→15:07)
[2016-09-01 16:00] VITALS: BP 114/53
[2016-09-01] MEDS: VANCOMYCIN 0.75 GM in IV D5W 250 ML IV SCH (16:16)
[2016-09-01] MEDS: IV NS 0.9% 1,000 ML IV PRN (16:18)
--- NOTE | 2016-09-01 19:29 | NUR ---
RN NOTES: RECEIVED PT ON BED, AWAKE, A/O X2 ESTONIAN SPEAKING FAMILY AT BED SIDE, PT ON 2L VIA NC, DENIES ANY PAIN OR DISCOMFORT AT THIS TIME. RESPIRATIONS EVEN AND UNLABORED, IV ACCESS PATENT AND FLUSHING WELL, INFUSING WITH NS AT 75ML/HR. SAFETY PRECAUTION FOR FALL INITIATED CALL LIGHT IN REACH, ENDORSED TO NEXT SHIFT FOR CONTINUITY OF CARE
[2016-09-01 20:00] VITALS: BP 128/65
--- NOTE | 2016-09-01 20:09 | NUR ---
RN NOTE; RECEIVED PT LAYING IN BED RESTING. AWAKE. W/ FAMILY AT THE BED SIDE. BREATHING EVENLY. NO SOB. NO DISTRESS. SKIN WARM AND DRY. NO COUGH . NO C/O PAIN OR DISCOMFORT. UROSTOMY BAG WAS CHANGED BY THE DTR AT THE BED SIDE. IN PLACE. ANAYA NEEDLE IN PLACE. NEEDS ATTENDED. CALL LIGHT WITHIN REACH. WILL CONT TO MONITOR.
[2016-09-01 20:38] VITALS: BP 128/65
--- NOTE | 2016-09-01 22:30 | NUR ---
PER PT'S DTR, SHE USES NYSTATIN POWDER AROUND THE UROSTOMY AREA. SPOKE TO DR. DIAZ ON THE FLOOR. MD [place]. A NEW ORDER NOTED. WILL PLACE THE ORDER
[2016-09-01] MEDS: LORAZEPAM INJ 2 MG/ML VIAL IV PRN (23:57)
--- NOTE | 2016-09-01 23:57 | NUR ---
ATIVAN 0.125ML GIVEN ORDERED FOR ANXIETY AND AGITATION. W/ ATTEMPTS TO GET OUT OF BED AND CONSTANT MOVING IN BED. PT WAS CLEANED AND DRIED AND MADE COMFORTABLE IN BED . WILL CONT TO MONITOR
[2016-09-02] MEDS: PIPERACILLIN /TAZOBACTAM 3.375 G in IV D5W 50 ML IV SCH ×4 (00:31→17:34)
[2016-09-02 06:46] LABS: BASOPHILS % (AUTO) 0.2 % (0.0-2.0); EOSINOPHILS # (AUTO) 0.1 /CMM (0.0-0.7); HEMATOCRIT 24 % (39-51); HEMOGLOBIN 7.7 g/dL (13.5-17.5); LYMPHOCYTES # (AUTO) 1.9 /CMM (0.8-4.8); LYMPHOCYTES % (AUTO) 13.3 % (20.0-44.0); MEAN CORPUSCULAR HEMOGLOBIN 27 PG (26.0-33.0); MEAN CORPUSCULAR HGB CONC 33 g/dl (31.0-36.0); MEAN CORPUSCULAR VOLUME 83 fL (80-96); MONOCYTES # (AUTO) 0.7 /CMM (0.1-1.30); MONOCYTES % (AUTO) 4.9 % (2.0-12.0); NEUTROPHILS # (AUTO) 11.5 /CMM (1.8-8.9); NEUTROPHILS % (AUTO) 80.6 % (43.0-81.0); PLATELET COUNT (AUTO) 261 /CMM (150-450); RDW COEFFICIENT OF VARIATION 17.3 (11.5-15.0); RED BLOOD CELL COUNT(AUTO) 2.85 MIL/uL (4.5-6.0); WHITE BLOOD COUNT (AUTO) 14.3 K/uL (4.3-11.0)
--- NOTE | 2016-09-02 06:47 | NUR ---
RN NOTE; PT IN BED RESTING COMFORTABLY . BREATHING EVENLY. NO SOB. NO DISTRESS SKIN WARM AND DRY . NO S/S OR C/O PAIN OR DISCOMFORT. NO ACUTE CHANGES DURING THE NIGHT . NEEDS ATTENDED. CLEANED AND DRIED. BED LOW LOCKED. SRX2. CALL LIGHT WITHIN REACH. WILL CONT TO MONITOR AND WILL ENDORSE TO AM SHIFT FOR KEITH.
--- NOTE | 2016-09-02 07:30 | NUR ---
PT RECEIVED RESTING COMFORTABLY IN BED WITH EYES CLOSED. NO S/S OR C/O PAIN OR DISTRESS NOTED. SIDE RAILS UP X2, CALL LIGHT LEFT WITHIN REACH. WILL CONTINUE PLAN OF CARE.
[2016-09-02 07:33] LABS: CALCIUM, SERUM 7.2 mg/dL (8.5-10.1); CREATININE 0.8 mg/dL (0.6-1.3); MAGNESIUM 1.9 mg/dL (1.8-2.4); PHOSPHORUS 2.5 mg/dL (2.5-4.9)
[2016-09-02 08:00] VITALS: BP 154/72
[2016-09-02] MEDS ORDERED: NYSTATIN TOP POWDER 15 GM BOTTLE TP PRN (08:00)
[2016-09-02] MEDS: CARVEDILOL 12.5 MG TABLET PO SCH (08:42)
[2016-09-02] MEDS: PANTOPRAZOLE 40 MG TABLET.DR PO SCH (08:44)
[2016-09-02] MEDS: ENOXAPARIN SODIUM 40 MG/0.4 ML DISP.SYRIN SQ SCH (08:45)
[2016-09-02] MEDS: FAMOTIDINE (20 MG) 20 MG TABLET PO SCH (08:46)
[2016-09-02] MEDS: CYANOCOBALAMIN 1,000 MCG/ML VIAL IM SCH (08:46)
--- NOTE | 2016-09-02 09:55 | NUR ---
M/S NURSING OPENING NOTES Patient is asleep in bed with head of bed at 50 degrees and TV is on.
[2016-09-02] MEDS ORDERED: SECONDARY IV SET 1 EA INFUS.SET MC ONE (12:08)
[2016-09-02] MEDS ORDERED: IV SET PRIMARY PUMP SET 1 EA INFUS.SET MC ONE ×2 (13:14→13:15)
[2016-09-02] MEDS: POTASSIUM CL. PREMIX PERIPHER. 50 ML IV SCH ×4 (13:28→20:38)
[2016-09-02] MEDS: VANCOMYCIN 0.75 GM in IV D5W 250 ML IV SCH (14:28)
[2016-09-02 16:00] VITALS: BP 126/53
--- NOTE | 2016-09-02 19:30 | NUR ---
RN NOTE; RECEIVED PT IN BED SLEEPING W/ FAMILY AT THE BED SIDE. BREATHING EVENLY. NO SOB. NO DISTRESS. SKIN WARM AND DRY. ON ONGOING RECEIVING K IV FOR REPLACEMENT. NO S/S OF PAIN OR DISCOMFORT. FAMILY CONCERN ABOUT THE POC. SPOKE TO THE FAMILY AND RELAYED THE WRITTEN PLAN ON DR. WHITAKER'S REPORT . PT REMAINED CLEAN AND COMFORTABLE. ASSISTED W/ ADLS. CALL LIGHT WITHIN REACH. WILL CONT TO MONITOR.
[2016-09-02 20:00] VITALS: BP 131/63
--- NOTE | 2016-09-02 20:07 | NUR ---
M/S NURSING CLOSING NOTES 1929 Gave report to Haritha. Pt is resting in bed with no complaints of pain or discomfort. VSS. Siderails up x2 and call light in reach.
[2016-09-03] MEDS: PIPERACILLIN /TAZOBACTAM 3.375 G in IV D5W 50 ML IV SCH ×5 (00:26→23:01)
[2016-09-03] MEDS: LORAZEPAM INJ 2 MG/ML VIAL IV PRN ×2 (00:51→08:59)
--- NOTE | 2016-09-03 00:55 | NUR ---
ATIVAN GIVEN FOR ANXIETY. TRYING TO REMOVE THE GOWN AND ATTEMPTS TO PULL OUT THE IV LINE. WILL CONT TO MONITOR
[2016-09-03] MEDS: IV NS 0.9% 1,000 ML IV PRN ×2 (05:37→21:57)
--- NOTE | 2016-09-03 06:36 | NUR ---
RN NOTE; PT IN BED REMAINED STABLE DURING THE NIGHT . NO ACUTE CHANGES. PSOAS DRAINING WELL. NO C/O PAIN OR DISCOMFORT. HAD A GOOD NIGHT SLEEP. NEEDS ATTENDED. CLEANED AND DRIED. CALL LIGHT WITHIN REACH. WILL CONT TO MONITOR AND WILL ENDORSE TO AM SHIFT FOR KEITH.
[2016-09-03 08:00] VITALS: BP 164/65
--- NOTE | 2016-09-03 08:00 | NUR ---
MS RN AM NOTES RECEIVED PT IN BED AWAKE,BREATHING EVENLY. NO SOB. NO DISTRESS. SKIN WARM AND DRY. ON ONGOING IVF NS AT 75 ML/HR INFUSING WELL.NO S/S OF PAIN OR DISCOMFORT. FED PT DURING BREAKFAST.ATE 30%.PT REMAINED CLEAN AND COMFORTABLE. TOTAL ASSIST W/ ADLS. CALL LIGHT WITHIN REACH. WILL CONT TO MONITOR.
[2016-09-03] MEDS: CYANOCOBALAMIN 1,000 MCG/ML VIAL IM SCH (08:59)
[2016-09-03] MEDS: PANTOPRAZOLE 40 MG TABLET.DR PO SCH (08:59)
[2016-09-03] MEDS: FAMOTIDINE (20 MG) 20 MG TABLET PO SCH (08:59)
[2016-09-03] MEDS: CARVEDILOL 12.5 MG TABLET PO SCH (08:59)
[2016-09-03] MEDS: ENOXAPARIN SODIUM 40 MG/0.4 ML DISP.SYRIN SQ SCH (09:03)
[2016-09-03 14:20] LABS: BASOPHILS % (AUTO) 0.2 % (0.0-2.0); EOSINOPHILS # (AUTO) 0.1 /CMM (0.0-0.7); EOSINOPHILS % (AUTO) 1.1 % (0.0-6.0); HEMATOCRIT 27 % (39-51); HEMOGLOBIN 8.5 g/dL (13.5-17.5); LYMPHOCYTES # (AUTO) 1.8 /CMM (0.8-4.8); LYMPHOCYTES % (AUTO) 14.7 % (20.0-44.0); MEAN CORPUSCULAR HEMOGLOBIN 26 PG (26.0-33.0); MEAN CORPUSCULAR HGB CONC 32 g/dl (31.0-36.0); MEAN CORPUSCULAR VOLUME 82 fL (80-96); MONOCYTES # (AUTO) 0.7 /CMM (0.1-1.30); MONOCYTES % (AUTO) 5.3 % (2.0-12.0); NEUTROPHILS # (AUTO) 9.7 /CMM (1.8-8.9); NEUTROPHILS % (AUTO) 78.7 % (43.0-81.0); PLATELET COUNT (AUTO) 271 /CMM (150-450); RDW COEFFICIENT OF VARIATION 18.5 (11.5-15.0); RED BLOOD CELL COUNT(AUTO) 3.24 MIL/uL (4.5-6.0); WHITE BLOOD COUNT (AUTO) 12.3 K/uL (4.3-11.0)
[2016-09-03 14:31] LABS: CALCIUM, SERUM 7.3 mg/dL (8.5-10.1); CREATININE 0.8 mg/dL (0.6-1.3); POTASSIUM 3.3 mmol/L (3.5-5.1)
[2016-09-03] MEDS ORDERED: POTASSIUM CHLORIDE 20 MEQ TAB.PRT.SR PO ONE (15:00)
[2016-09-03] MEDS: VANCOMYCIN 0.75 GM in IV D5W 250 ML IV SCH (15:35)
[2016-09-03 16:00] VITALS: BP 128/77
[2016-09-03] MEDS: BOOST PLUS FOOD-VANILLA 237 ML BOX PO SCH (18:18)
--- NOTE | 2016-09-03 19:45 | NUR ---
MS RN INITIAL NOTES: RECEIVED REPORT FROM GERONIMO Morales RN. PT ON BED, AWAKE, A/O X1-2 UKRAINIAN SPEAKING, FAMILY AT BED SIDE, ON ROOM AIR, RESPIRATION EVEN AND UNLABORED. NO FACIAL GRIMACE NOTED, PT DENIES ANY PAIN OR DISCOMFORT AT THIS TIME, APPEARS CALM AND COMFORTABLE. HAS PORTACATH IN PLACED, DRESSING C/D/I. PORTACATH OKAY TO USE FOR MEDICATION AND IVF, THE SAID ACCESS INFUSING WITH NS AT 75ML/HR. PT HAS UROSTOMY DRAINING INTO YELLOW COLORED URINE. S/P CT GUIDED ABSCESS DRAINAGE WITH ACCORDION DRAIN IN PLACED, WITH DRESSING ON LEFT POSTERIOR BACK C/D/I, NO S/S OF LEAK NOTED. BLE KEPT OFFLOADED. SAFETY PRECAUTION FOR FALL INITIATED CALL LIGHT IN REACH, WILL CONTINUE TO MONITOR.
[2016-09-03 20:00] VITALS: BP 126/58
[2016-09-03] MEDS: Z GUARD REMEDY 2 OZ OINT TP PRN (21:25)
[2016-09-03] MEDS ORDERED: IV SET PRIMARY PUMP SET 1 EA INFUS.SET MC ONE (21:55)
[2016-09-03] MEDS ORDERED: SECONDARY IV SET 1 EA INFUS.SET MC ONE (21:55)
--- NOTE | 2016-09-03 23:18 | NUR ---
MS RN NOTES: BED BATH AND COMPLETE LINEN CHANGED PROVIDED BY NURIA GARVIN
[2016-09-04] MEDS: PIPERACILLIN /TAZOBACTAM 3.375 G in IV D5W 50 ML IV SCH ×2 (05:04→11:54)
--- NOTE | 2016-09-04 06:46 | NUR ---
MS RN CLOSING NOTES: PT ON BED, AWAKE, REMAINS A/O X2, ON ROOM AIR RESPIRATION EVEN AND UNLABORED, APPEARS CALM AND COMFORTABLE, JIE CW PORTACATH PATENT AND INFUSING WITH NS AT 75ML/HR. UROSTOMY BAG EMPTIED, NO S/ OF LEAK NOTED. LEFT POSTERIOR BACK DRESSING REMAINS C/D/I, NO S/S/ OF LEAK NOTED, ACCORDION DRAIN IN PLACED. BLE KEPT OFFLOADED. PT REMAINS NPO FOR CT ABDOMEN TODAY, CONSENT SECURED. VS REMAINS STABLE, NEEDS ATTENDED. BLE KEPT OFFLOADED. SAFETY PRECAUTIONS FOR FALL REMAINS ENGAGED, CALL LIGHT IN REACH, WILL ENDORSE TO DAY RN FOR KEITH.
[2016-09-04 06:58] LABS: BASOPHILS % (AUTO) 0.2 % (0.0-2.0); EOSINOPHILS # (AUTO) 0.1 /CMM (0.0-0.7); EOSINOPHILS % (AUTO) 0.8 % (0.0-6.0); HEMATOCRIT 25 % (39-51); HEMOGLOBIN 8.1 g/dL (13.5-17.5); LYMPHOCYTES # (AUTO) 1.9 /CMM (0.8-4.8); LYMPHOCYTES % (AUTO) 13.7 % (20.0-44.0); MEAN CORPUSCULAR HEMOGLOBIN 27 PG (26.0-33.0); MEAN CORPUSCULAR HGB CONC 33 g/dl (31.0-36.0); MEAN CORPUSCULAR VOLUME 83 fL (80-96); MONOCYTES # (AUTO) 0.7 /CMM (0.1-1.30); MONOCYTES % (AUTO) 4.8 % (2.0-12.0); NEUTROPHILS # (AUTO) 11.1 /CMM (1.8-8.9); NEUTROPHILS % (AUTO) 80.5 % (43.0-81.0); PLATELET COUNT (AUTO) 222 /CMM (150-450); RDW COEFFICIENT OF VARIATION 18.2 (11.5-15.0); RED BLOOD CELL COUNT(AUTO) 2.96 MIL/uL (4.5-6.0); WHITE BLOOD COUNT (AUTO) 13.8 K/uL (4.3-11.0)
[2016-09-04 07:24] LABS: CALCIUM, SERUM 7.3 mg/dL (8.5-10.1); CREATININE 0.7 mg/dL (0.6-1.3); MAGNESIUM 1.7 mg/dL (1.8-2.4); POTASSIUM 5.6 mmol/L (3.5-5.1)
[2016-09-04 08:00] VITALS: BP 128/81
[2016-09-04] MEDS: CARVEDILOL 12.5 MG TABLET PO SCH (09:09)
[2016-09-04] MEDS: CYANOCOBALAMIN 1,000 MCG/ML VIAL IM SCH (09:09)
[2016-09-04] MEDS: PANTOPRAZOLE 40 MG TABLET.DR PO SCH (09:10)
[2016-09-04] MEDS: FAMOTIDINE (20 MG) 20 MG TABLET PO SCH (09:10)
[2016-09-04] MEDS: ENOXAPARIN SODIUM 40 MG/0.4 ML DISP.SYRIN SQ SCH (09:11)
[2016-09-04] MEDS: BOOST PLUS FOOD-VANILLA 237 ML BOX PO SCH ×2 (09:12→13:00)
--- NOTE | 2016-09-04 09:16 | NUR ---
MS/RN Medications Morning medications administered as ordered with small sips of water.
[2016-09-04] MEDS: Magnesium 1GM/D5W 100ML PREMIX 100 ML IV SCH ×2 (11:55→12:52)
[2016-09-04] MEDS: IV NS 0.9% 1,000 ML IV PRN (12:54)
--- NOTE | 2016-09-04 13:45 | NUR ---
MS/RN S/B Kay Alvarez FRONT END DEVELOPER JAVASCRIPT HTML CSS Seen by FRONT END DEVELOPER JAVASCRIPT HTML CSS - patient to be discharged back to facility today, family aware and in agreement.
--- NOTE | 2016-09-04 14:00 | NUR ---
MS/psychiatric tech update Call received from Le (daughter), informed of discharge order, in agreement that patient will be discharged to [facility].
[2016-09-04] MEDS ORDERED: CYAN10006 IM (14:10)
[2016-09-04] MEDS ORDERED: Nystatin TP (14:10)
[2016-09-04] MEDS ORDERED: RXVAN XX (14:10)
[2016-09-04] MEDS ORDERED: ENOX40DI SQ (14:10)
[2016-09-04] MEDS ORDERED: PIPE3.379 IV (14:10)
--- NOTE | 2016-09-04 15:30 | NUR ---
MS/RN Exit care Exit care completed and signed by two nurses. Medical record copied.
--- NOTE | 2016-09-04 15:47 | NUR ---
MS/RN Pictures Pictures taken ready for discharge.
[2016-09-04 16:00] VITALS: BP 135/70
--- NOTE | 2016-09-04 17:32 | NUR ---
MS/cardiac monitor technician Patient discharged to [facility]. name bands and cha needle removed. All belongings with patient and signed off on belongings list. Report called to facility and report given to Gabriela.
== END 2016-09-04 18:14 | DRG 871 ==
LOC: ER 17:16 → TELE2 20:09 → MEDSG2 21:30
PROVIDERS: ADMIT Nurse Practitioner Acute Care; ATTEND Nurse Practitioner Acute Care
PROC: 0K9P30Z Drainage of Left Hip Muscle with Drainage Device, Percutaneous Approach (ICD-10-PCS; principal; 2016-08-30)
DX: A41.9 Sepsis, unspecified organism (principal); E43 Unspecified severe protein-calorie malnutrition; R53.2 Functional quadriplegia; K68.12 Psoas muscle abscess; G93.41 Metabolic encephalopathy; N39.0 Urinary tract infection, site not specified; C79.89 Secondary malignant neoplasm of other specified sites; K21.9 Gastro-esophageal reflux disease without esophagitis; L89.91 Pressure ulcer of unspecified site, stage 1; E87.6 Hypokalemia; E11.9 Type 2 diabetes mellitus without complications; D63.8 Anemia in other chronic diseases classified elsewhere; E83.42 Hypomagnesemia; Z86.718 Personal history of other venous thrombosis and embolism; Z85.6 Personal history of leukemia; E88.09 Other disorders of plasma-protein metabolism, not elsewhere classified; Z68.22 Body mass index [BMI] 22.0-22.9, adult; S00.81XA Abrasion of other part of head, initial encounter; Y93.9 Activity, unspecified; Y92.009 Unspecified place in unspecified non-institutional (private) residence as the place of occurrence of the external cause; Y99.9 Unspecified external cause status; L98.9 Disorder of the skin and subcutaneous tissue, unspecified; R21 Rash and other nonspecific skin eruption; K52.9 Noninfective gastroenteritis and colitis, unspecified; E53.8 Deficiency of other specified B group vitamins; Z93.6 Other artificial openings of urinary tract status; B95.62 Methicillin resistant Staphylococcus aureus infection as the cause of diseases classified elsewhere; C67.9 Malignant neoplasm of bladder, unspecified; Z87.440 Personal history of urinary (tract) infections; Z92.21 Personal history of antineoplastic chemotherapy; Z79.899 Other long term (current) drug therapy; Z90.6 Acquired absence of other parts of urinary tract; W06.XXXA Fall from bed, initial encounter; I10 Essential (primary) hypertension; F03.90 Unspecified dementia, unspecified severity, without behavioral disturbance, psychotic disturbance, mood disturbance, and anxiety; R65.20 Severe sepsis without septic shock
CPT/HCPCS: 36415; 70450-TC; 71010-TC; 71270-TC; 72170-TC; 72194-TC; 74000-TC; 74170-TC; 75989-TC; 80048-TC; 80061-TC; 80076-TC; 80202-TC; 81000-TC; 82272-TC; 82728-TC; 83540-TC; 83605-TC; 83735-TC; 84100-TC; 84155; 84165; 84439-TC; 84443-TC; 85025-TC; 85610-TC; 85730-TC; 86850-TC; 87040-TC; 87045-TC; 87070-TC; 87086-TC; A4606; J0696; J1650; J2060; J2250; J2310; J2543; J3010; J3370; J3420; J3475; J3480; J3490; J7030; J7050; J7060; Q9967; Z7610